=== PATIENT | female | born 1990 | race Caucasian/White ===

== ENCOUNTER 2017-05-07 13:38 | Emergency (ER) | payer MEDICAID ==
[~2017-05-07] VITALS: Ht 157.5 cm; Wt 76.2 kg
[2017-05-07 13:43] VITALS: BP 129/57
--- NOTE | 2017-05-07 13:51 | NUR ---
Pt taken to bed 7.
--- NOTE | 2017-05-07 14:01 | NUR ---
26/F c/o lower abdominal cramping for the past 3 weeks and vaginal bleeding this am. Pt is 10 weeks , G-1 P-0. Pt also c/o lower back pain. AOX4, congolese speaking. VSS.
--- NOTE | 2017-05-07 14:09 | NUR ---
Patient being evaluated by Dr. Larsen at bedside.
[2017-05-07 14:18] LABS: BASOPHILS # (AUTO) 0.3 K/uL (0.00-0.22); EOSINOPHILS # (AUTO) 0.3 K/uL (0-0.4); HEMATOCRIT 39.8 % (36-48); HEMOGLOBIN 13.9 g/dL (12.0-16.0); LYMPHOCYTES # (AUTO) 1.8 K/uL (2.5-16.5); MEAN CORPUSCULAR HEMOGLOBIN 32 pg (27-31); MEAN CORPUSCULAR HGB CONC 35 g/dL (33-37); MEAN CORPUSCULAR VOLUME 92 fL (80-94); MONOCYTES # (AUTO) 0.4 K/uL (0.8-1.0); PLATELET COUNT (AUTO) 316 K/uL (140-450); RED BLOOD CELL COUNT(AUTO) 4.35 MIL/uL (4.20-5.40); RED CELL DISTRIBUTION WIDTH 11.6 % (11.6-13.7); WHITE BLOOD COUNT (AUTO) 10.8 K/uL (4.8-10.8)
--- NOTE | 2017-05-07 14:29 | NUR ---
Pt taken to US via w/c.
[2017-05-07 14:30] LABS: ANION GAP 12.3 (8-16); CALCIUM 8.9 mg/dL (8.5-10.1); CARBON DIOXIDE 24.4 mmol/L (21-32); CREATININE 0.6 mg/dL (0.6-1.3); POTASSIUM 3.7 mmol/L (3.5-5.1)
--- NOTE | 2017-05-07 14:51 | NUR ---
Pt back from US and placed in bed 7.
[2017-05-07 15:02] LABS: BILIRUBIN,URINE NEGATIVE (NEGATIVE); BLOOD, URINE NEGATIVE (NEGATIVE); COLOR,URINE YELLOW (YELLOW); LEUKOCYTE ESTERASE ,URINE NEGATIVE (NEGATIVE); NITRITE, URINE POSITIVE (NEGATIVE); PH,URINE 5.5 (5.0-9.0); PROTEIN,URINE NEGATIVE (NEGATIVE); UGLUCOSE NEGATIVE (NEGATIVE); UROBILINOGEN,URINE 0.2 EU/dL (0.2 - 1)
[2017-05-07 15:04] LABS: APPEARANCE,URINE SLIGHTLY HAZY (CLEAR)
[2017-05-07 15:05] LABS: BACTERIA,URINE 4+ /HPF (None Seen); RBC,URINE 0-5 /HPF (0-5)
--- NOTE | 2017-05-07 15:17 | NUR ---
Patient appears to be resting comfortably in bed. VSS. No distress noted. Pt updated on status, waiting for US report. Pt verbalized understanding. All needs addressed.
--- NOTE | 2017-05-07 15:55 | NUR ---
All results given to patient for follow up with OBGYN. Dr. Gabo Ojeda's office address and phone number provided to patient for follow up. Pt advised to call office today or tomorrow to make follow up appointment. Pt verbalized understanding.
[2017-05-07 16:00] VITALS: BP 106/69
== END 2017-05-07 16:04 | disposition home or self-care (01) ==
LOC: MED 13:38
DX: O23.41 Unspecified infection of urinary tract in pregnancy, first trimester (principal); Z3A.10 10 weeks gestation of pregnancy; O46.91 Antepartum hemorrhage, unspecified, first trimester; R03.0 Elevated blood-pressure reading, without diagnosis of hypertension
CPT/HCPCS: 36415; 76801; 80048; 81001; 81025; 84702; 85025; 86900; 86901; 87086; 99285

== ENCOUNTER 2018-01-18 13:45 | Emergency (ER) | payer SELFPAY ==
[~2018-01-18] VITALS: Ht 160 cm; Wt 63.0 kg
[2018-01-18 13:49] VITALS: BP 145/81
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
[2018-01-18] MEDS ORDERED: KETOROLAC 60 MG/2 ML VIAL IM ONE (14:30)
[2018-01-18 15:00] VITALS: BP 132/78
--- NOTE | 2018-01-18 15:00 | NUR ---
Patient discharged with v/s stable. Written and verbal after care instructions given and explained. Patient alert, oriented and verbalized understanding of instructions. Ambulatory with steady gait. All questions addressed prior to discharge. ID band removed. Patient advised to follow up with PMD. Rx of MOTRIN 600MG given. Patient educated on indication of medication including possible reaction and side effects. Opportunity to ask questions provided and answered.
== END 2018-01-18 15:00 | disposition home or self-care (01) ==
LOC: MED 13:45
DX: S09.8XXA Other specified injuries of head, initial encounter (principal); W18.39XA Other fall on same level, initial encounter; Y93.89 Activity, other specified; Y92.89 Other specified places as the place of occurrence of the external cause; Y99.8 Other external cause status; Z90.89 Acquired absence of other organs
CPT/HCPCS: 81025; 96372; 99283; J1885

== ENCOUNTER 2020-08-03 19:05 | Emergency (ER) | payer SELFPAY ==
[~2020-08-03] VITALS: Ht 157.5 cm; Wt 82.1 kg
[2020-08-03 19:13] VITALS: BP 95/73
[2020-08-03 20:00] LABS: BASOPHILS # (AUTO) 0.1 K/uL (0.00-0.22); BASOPHILS % (AUTO) 0.5 % (0.0-2.0); EOSINOPHILS # (AUTO) 0.1 K/uL (0-0.4); EOSINOPHILS % (AUTO) 0.4 % (0.0-4.0); HEMATOCRIT 40.3 % (36-48); HEMOGLOBIN 13.6 g/dL (12.0-16.0); LYMPHOCYTES # (AUTO) 2.1 K/uL (2.5-16.5); LYMPHOCYTES % (AUTO) 16.8 % (20.5-51.1); MEAN CORPUSCULAR HEMOGLOBIN 31 pg (27-31); MEAN CORPUSCULAR HGB CONC 34 g/dL (33-37); MEAN CORPUSCULAR VOLUME 91.3 fL (80-94); MONOCYTES # (AUTO) 0.5 K/uL (0.8-1.0); MONOCYTES % (AUTO) 4.1 % (1.7-9.3); NEUTROPHILS # (AUTO) 9.6 K/uL (1.8-7.7); NEUTROPHILS % (AUTO) 78.2 % (42.2-75.2); PLATELET COUNT (AUTO) 355 K/uL (140-450); RED BLOOD CELL COUNT(AUTO) 4.41 MIL/uL (4.20-5.40); RED CELL DISTRIBUTION WIDTH 12.7 % (11.6-13.7); WHITE BLOOD COUNT (AUTO) 12.3 K/uL (4.8-10.8)
[2020-08-03 20:00] LABS: APPEARANCE,URINE CLOUDY (CLEAR); BILIRUBIN,URINE NEGATIVE (NEGATIVE); BLOOD, URINE 3+ (NEGATIVE); COLOR,URINE RED (YELLOW); LEUKOCYTE ESTERASE ,URINE 2+ (NEGATIVE); NITRITE, URINE POSITIVE (NEGATIVE); PH,URINE 6.5 (5.0-9.0); UGLUCOSE TRACE (NEGATIVE)
[2020-08-03] MEDS ORDERED: ACETAMINOPHEN 325 MG TAB ONE (20:04)
[2020-08-03] MEDS ORDERED: ACETAMINOPHEN 325 MG TAB PO ONE (20:05)
[2020-08-03 20:26] LABS: RBC,URINE >100 /HPF (0-5); WBC,URINE 20-60 /HPF (0-5)
[2020-08-03] MEDS ORDERED: KETOROLAC 30 MG/ML VIAL ONE (21:06)
[2020-08-03] MEDS ORDERED: KETOROLAC 30 MG/ML VIAL IM ONE (21:10)
[2020-08-03 21:30] VITALS: BP 104/68
== END 2020-08-03 21:21 | disposition home or self-care (01) ==
LOC: MED 19:05
DX: O03.9 Complete or unspecified spontaneous abortion without complication (principal); O23.41 Unspecified infection of urinary tract in pregnancy, first trimester; Z3A.01 Less than 8 weeks gestation of pregnancy
CPT/HCPCS: 36415; 76817; 81001; 84702; 85025; 86900; 86901; 87086; 96372; 99284; J1885; Q0092

== ENCOUNTER 2021-01-12 18:13 | Emergency (ER) | payer MEDICAID ==
[~2021-01-12] VITALS: Ht 162.6 cm; Wt 83.9 kg
[2021-01-12 18:18] VITALS: BP 127/79
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
--- NOTE | 2021-01-12 18:27 | NUR ---
Patient being evaluated by physician at bedside.
[2021-01-12] MEDS ORDERED: ALBUTEROL SULFATE/IPRATROPIU 3 ML SOL IH ONE (18:30)
--- NOTE | 2021-01-12 18:40 | NUR ---
PT W/C ASSISTED TO BED 5.
--- NOTE | 2021-01-12 18:42 | NUR ---
Ted louis in [facility] - 01/12/21 at 1843 by [email or web address] PT TRANSPORTED TO BED 5 AT THIS TIME
--- NOTE | 2021-01-12 18:50 | NUR ---
30 YEAR OLD FEMALE COMPLAINS OF SOB X 3 DAYS. PT STATES SYMPTOMS SIMILAR TO PREVIOUS ASTHMA FLAREUPS. PT DENIES NAUSEA, VOMITTING , DIARRHEA. PT AOX4, BREATHING EVEN AND UNLABORED, SKIN WARM AND DRY. BED IN LOWEST POSITION, SEMI-FOWLERS, LOCKED, BED RAIL UPX1. PT ON 2L NC, SPO2 99%. PMH - ASTHMA, APPENDICITIS ALLERGIES - NKA
--- NOTE | 2021-01-12 18:57 | NUR ---
RT AT BEDSIDE.
--- NOTE | 2021-01-12 19:17 | NUR ---
REPORT GIVEN TO FARRAH DAVIDSON, TRANSFER OF CARE AT THIS TIME
[2021-01-12] MEDS ORDERED: PRED20TA5 PO (19:30)
[2021-01-12 20:20] VITALS: BP 128/80
== END 2021-01-12 20:20 | disposition home or self-care (01) ==
LOC: MED 18:13
DX: J45.901 Unspecified asthma with (acute) exacerbation (principal)
CPT/HCPCS: 71045; 94640; 99283